=== PATIENT | female | born 1990 | race Caucasian/White ===

== ENCOUNTER 2018-12-06 07:36 | Day surgery (SDC) | payer BC ==
[~2018-12-06] VITALS: Ht 149.9 cm; Wt 41.6 kg
[2018-12-06] VITALS (12 sets, daily range): BP systolic 98–111; BP diastolic 50–73; PULSE 66–84; RESP 13–20; Ht 149.9 cm; Wt 41.6 kg
[~2018-12-06 07:36] MED LIST: [UNRECOGNIZED DRUG - REMARK] PO
[2018-12-06] MEDS ORDERED: ACETAMINOPHEN 500 MG TAB PO ONE (09:00)
[2018-12-06] MEDS ORDERED: ONDANSETRON 4 MG INJ IV PRN (10:00)
[2018-12-06] MEDS ORDERED: morphine 2 MG INJ IV PRN ×2 (10:00)
[2018-12-06] MEDS ORDERED: EPHEDrine 25 MG/5 ML SYG IV PRN (10:00)
[2018-12-06] MEDS ORDERED: DIPHENHYDRAMINE 50 MG INJ IV PRN (10:00)
[2018-12-06] MEDS ORDERED: OXYCODONE/ACETAMINOPHEN (5/325) TAB PO PRN ×2 (10:00)
[2018-12-06] MEDS ORDERED: FENTAnyl 50 MCG/ML VIAL IV PRN ×2 (10:00)
[2018-12-06] MEDS ORDERED: ATROPINE 1 MG/10 ML SYRINGE IV PRN (10:00)
[2018-12-06] MEDS ORDERED: KETOROLAC 15 MG INJ IV PRN (10:00)
[2018-12-06] MEDS ORDERED: hydrALAzine 20 MG INJ IV PRN (10:00)
[2018-12-06] MEDS ORDERED: LEVALBUTEROL (NEB) 0.63 MG/3 ML AMP HHN PRN (10:00)
[2018-12-06] MEDS ORDERED: HYDROmorphONE 1 MG/5 ML IV SYRINGE IV PRN ×3 (10:00)
[2018-12-06] MEDS ORDERED: LABETALOL HCL 20MG INJ IV PRN (10:00)
[2018-12-06] MEDS ORDERED: ALBUTEROL 0.083% (NEB) 2.5 MG/3 ML AMP HHN PRN (10:00)
[2018-12-06] MEDS ORDERED: LIDOCAINE 2% (SDV) 5 ML INJ ONE (10:27)
[2018-12-06] MEDS ORDERED: ONDANSETRON 4 MG INJ ONE (10:27)
[2018-12-06] MEDS ORDERED: PROPOFOL 40 ML ONE (10:27)
[2018-12-06] MEDS ORDERED: FENTAnyl 50 MCG/ML VIAL ONE (10:27)
[2018-12-06] MEDS ORDERED: MIDAZOLAM 1 MG/ML 2 ML INJ ONE (10:27)
[2018-12-06] MEDS ORDERED: CEFAZOLIN 1 GM INJ ONE (10:27)
[2018-12-06] MEDS ORDERED: FAMOTIDINE 20 MG INJ ONE (10:27)
[2018-12-06] MEDS ORDERED: DEXAMETHASONE 4 MG/ML 5 ML INJ ONE (10:27)
[2018-12-06] MEDS ORDERED: KETOROLAC 30 MG INJ ONE (10:43)
== END 2018-12-06 12:20 | disposition home or self-care (01) ==
LOC: SDS 07:36
PROVIDERS: ATTEND Obstetrics & Gynecology
DX: N84.0 Polyp of corpus uteri (principal)
CPT/HCPCS: 58558; 84703; 88305; J0690; J1100; J1885; J2250; J2405; J3010; Z7512; Z7610